=== PATIENT | male | born 1960 | race Caucasian/White ===

== ENCOUNTER → 2017-07-06 | Day surgery (SDC) | payer OTHER ==
[~2017-07-06] MED LIST: ACETAMINOPHEN 1000 MG/100 ML VIAL IV ONE; ACETAMINOPHEN/HYDROcodone 325 MG/5 MG TAB ONE; ALLO300T2 PO; ASPI81TA82 PO; BUME0.5T PO; BUPIVACAINE/EPINEPHRINE 0.25% 50 ML VIAL ONE; CARV3.12 PO; CEPH500C3 PO; CETI10 PO; FENO130C PO; GLUCTAB PO; KETOROLAC TROMETHAMINE 30 MG/ML (IVP) VIAL IV PUSH ONE; LACTATED RINGER'S 1,000 ML BAG IV ONE; LOSA25 PO; MIDAZOLAM HCL 2 MG/2 ML VIAL ONE; OMEP40CA2 PO; ONDANSETRON HCL 4 MG/2 ML VIAL IV PUSH ONE; PROPOFOL 200 MG/20 ML AMP IV ONE; SODIUM CHLOR 0.9% 250 ML INJ 250 ML IV ONE; VANCOMYCIN HCL 1000 MG VIAL ONE; ceFAZolin INJ 1,000 MG VIAL ONE
--- NOTE | 2017-07-09 08:06 | MP ---
cc: DK PRINCE MD, HANSCY M.D. FABIAN, MICHAEL A. M.D. DATE OF SURGERY 07/06/2017 PROCEDURE Laparoscopic cholecystectomy. PREOPERATIVE DIAGNOSIS Symptomatic cholelithiasis. POSTOPERATIVE DIAGNOSIS Symptomatic cholelithiasis. ANESTHESIA General endotracheal. SURGEON MD Jax [employer] KIKE Norman ESTIMATED BLOOD LOSS 10 mL. FLUIDS 1000 mL crystalloid. COMPLICATIONS None. DRAINS None. SPECIMEN Gallbladder and stones to pathology. PROCEDURE IN DETAIL The CREW BOSS was present from the beginning to the end of the case assisting in all portions of the procedure. The surgical procedure was assisted by the CREW BOSS. The CREW BOSS's presence was necessary throughout the case for appropriate retraction, dissection, visualization and resection of the important anatomical structures during the procedure. The patient was taken to the operating room and placed on the operating table in the supine position. After an adequate level of general endotracheal anesthesia was achieved, the abdomen was prepped and draped in the usual fashion. Time-out was taken confirming the correct patient site and procedure to be performed. The skin and subcutaneous tissue was infiltrated with local anesthetic and an incision made in the umbilicus and carried through the fascia sharply. The peritoneal cavity was visualized directly and a 12-mm balloon trocar was inserted and the balloon inflated. The abdomen was insufflated and a 5-mm 0-degree lens was inserted. The patient was placed in reverse Trendelenburg position. Three 5-mm trocars were then placed with the first to the right of the falciform ligament and second and third in the right subcostal region. All entered the abdominal cavity under direct vision uneventfully. The gallbladder was retracted up and over the dome of the liver. The loose omental adhesions were taken down off of the gallbladder. The cystic duct/infundibular junction and cystic artery were both circumferentially dissected. The patient had a relatively short cystic artery and a small additional branch was noted coming off of the cystic artery. The cystic artery was doubly clipped proximally and an additional clip placed on the small branch going into the gallbladder. The cystic duct was then doubly clipped distally, singly clipped on the gallbladder side and divided. The gallbladder was dissected off of the liver bed with electrodissection. The gallbladder was placed into an EndoCatch device and removed via the umbilical port while observing via the upper 5 mm trocar site. The upper abdomen was revisualized and all bloody material was irrigated and aspirated. With hemostasis assured, the cystic artery stump with the additional branch, the cystic duct stump and the liver bed were all seen to be clean and dry. Insufflation was discontinued and the upper abdominal trocars removed under direct vision. No bleeding was noted from the trocar sites. The laparoscope and umbilical port were then removed. The fascia was closed in the umbilicus with [id number] and simple interrupted 0 Vicryl suture. The remaining local anesthetic was injected into each of the trocar sites and the skin closed with 4-0 Vicryl in interrupted buried fashion at each of the trocar sites. The wounds were dressed with Steri-Strips. The patient was extubated and taken back to the recovery room in stable condition. Sponge and needle counts were reported to be correct. MD EARNEST Mcdaniel/DEVON /7:21 PM /7:57 AM
== END | disposition home or self-care (01) ==
LOC: ESDC 08:17
PROVIDERS: ATTEND Surgery Trauma Surgery
DX: K80.10 Calculus of gallbladder with chronic cholecystitis without obstruction (principal)
CPT/HCPCS: 00790; 47562; 88304; J0131; J0690; J1885; J2250; J2405; J3010; J3370; J7050; J7120